=== PATIENT | female | born 1930 | race Caucasian/White ===

== ENCOUNTER → 2016-08-13 16:41 | Outpatient (CLI) | payer MEDICARE, OTHER ==
[2013-03-17 07:27] VITALS: BMI 23.0
[~2016-08-13 16:41] MED LIST: ACIPHEX20 MG PO; ATROVENT 0.03%30 ML; ATROVENT 0.03%30 ML NS; CELEBREX200 MG PO; CELEXA20 MG PO; COUMADIN2 MG PO; DITROPAN X5 MG/BOTTL PO; LISINOPRIL10 MG PO; NEURONTIN 300300 MG PO; NORCO 5/325 TAB1 TA1 PO; TENORMIN50 MG PO; UTA PO; VITAMIN D PO; VOLTAREN100 GM TP; ZANTAC300 MG PO; ZETIA10 MG PO; ZYRTEC PO
== END | disposition home or self-care (01) ==
LOC: D.MAMMO 07-16 09:30
DX: Z12.31 Encounter for screening mammogram for malignant neoplasm of breast (principal)

== ENCOUNTER → 2017-08-24 16:41 | Outpatient (CLI) | payer MEDICARE, OTHER ==
[2013-03-17 07:27] VITALS: BMI 23.0
== END | disposition home or self-care (01) ==
LOC: D.MAMMO 14:45
DX: Z12.31 Encounter for screening mammogram for malignant neoplasm of breast (principal)

== ENCOUNTER → 2017-12-06 12:47 | Outpatient (CLI) | payer MEDICARE, OTHER ==
[2013-03-17 07:27] VITALS: BMI 23.0
== END | disposition home or self-care (01) ==
LOC: D.CT 12:47
DX: I73.9 Peripheral vascular disease, unspecified (principal)

== ENCOUNTER 2018-01-19 05:33 | Outpatient (CLI) | payer MEDICARE, OTHER ==
[~2018-01-19] VITALS: Ht 162.6 cm; Wt 55.9 kg
--- NOTE | ~2018-01-19 | HEMODYNAMI ---
PATIENT:LACEY FREDERICK MEDICAL RECORD: [id number] : 34 LOCATION:[facility] ADMISSION DATE: 01/19/18 Generatedon:01/19/20189:13 Patient name: LACEY FREDERICK Patient #: [id number] SSN: DO B: 1930 Date of study: 01/19/2018 Page: Of Hemodynamic Procedure Report Patient Data Patient Demographics Procedure consent was obtained First Name: LACEY Gender: Female Last Name: YOLY : 1930 Middle Initial: M Age: 87 year(s) Patient #: [id number] Race: Unknown Additional ID: [id number] Contact details Address: [address] [place] [address] State: [place] City: [place] Zip code: [address] Past Medical History Allergies Allergen Reaction Date Comments Reported Erythromycin 01/19/2018 Sulfa drugs 01/19/2018 Admission Admission Data Admission Date: 01/19/2018 Admission Time: 5:33 Height (in.): 64 BSA: 1.59 (m2) Height (cm.): 162.56 BMI: 21.11 (kg/m2) Weight (lbs.): 123 Weight (kg.): 55.79 Procedure Procedure Types Cath Procedure Peripheral Cath 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 Abd/Extremity Extremities Bilat Lower Extremity Procedure Description Procedure Date Procedure Date: 01/19/2018 Procedure Start Time: 8:26 Procedure Staff Name Function Marko Arthur MD Performing Physician Mariajose Zamora RT Environmental Health Technician Isabella Goldstein RN Nurse Nuris Starks RN Nurse Ross Ohara RT Scrub Procedure Data Cath Procedure Fluoroscopy Diagnostic fluoroscopy Total fluoroscopy Time: 6.6 time: 6.6 min min Diagnostic fluoroscopy Total fluoroscopy dose: dose: 1126 mGy 1126 mGy Contrast Material Contrast Material Type Amount (ml) Isovue 300 90 Entry Location Entry Primary Successful Side Size Upsize Upsize Entry Closure Succes sful Closure Location (Fr) 1 (Fr) 2 (Fr) Remarks Device Remarks Femoral Left Exoseal artery Procedure Medications Medication Administration Route Dosage Heparin Flush Bag added to field 3 bags (1000units/500ml NS) Lidocaine 1% added to field 20 Oxygen etCO2 Nasal cannula 3 l/min Versed I.V. 0.5 mg Fentanyl I.V. 25 mcg Fentanyl I.V. 25 mcg Versed I.V. 0.5 mg Fentanyl I.V. 25 mcg Versed I.V. 0.5 mg Versed I.V. 0.5 mg Fentanyl I.V. 25 mcg Hemodynamics Rest BSA: 1.59 (m2) O2 Consumption: Estimated: 140.92 (ml/min) O2 Consumption indexed : Estimated:88.63 (ml/min/m) Heart Rate: 69 (bpm) Snapshots Pre Cath Intra NCS Post Cath Vital Signs Time Heart Resp SPO2 etCO2 NIBP (mmHg) Rhythm Pain Sedation Rate (ipm) (%) (mmHg) Status Level (bpm) 7:52:18 67 12 100 27 190/101(147) NSR 0 (11) 10(A) , No pain 7:57:03 69 20 100 27 206/100(152) NSR 0 (11) 10(A) , No pain 8:01:46 65 13 100 25.5 178/82(131) NSR 0 (11) 10(A) , No pain 8:05:45 66 11 100 24.8 169/85(132) NSR 0 (11) 9(A) , No pain 8:09:47 62 9 100 24.8 174/81(135) NSR 0 (11) 9(A) , No pain 8:14:21 62 9 100 30 184/84(144) NSR 0 (11) 9(A) , No pain 8:18:25 62 14 100 27 186/86(143) NSR 0 (11) 9(A) , No pain 8:22:29 61 21 100 32.3 180/84(116) NSR 0 (11) 9(A) , No pain 8:27:05 64 10 100 32.3 182/86(137) NSR 0 (11) 9(A) , No pain 8:31:07 62 23 100 33.8 179/89(130) NSR 0 (11) 8(A) , No pain 8:35:09 58 12 100 32.3 171/79(135) SB 0 (11) 8(A) , No pain 8:39:45 66 12 100 27 171/86(128) SB 0 (11) 8(A) , No pain 8:44:19 59 11 100 25.5 172/78(132) SB 0 (11) 8(A) , No pain 8:48:56 65 12 100 27.8 117/84(107) SB 0 (11) 8(A) , No pain 8:53:53 67 10 100 34.6 Out of range SB 0 (11) 8(A) , No pain 8:55:01 67 10 100 33.1 185/92(144) SB 0 (11) 8(A) , No pain 8:59:02 69 11 100 33.1 188/96(155) SB 0 (11) 8(A) , No pain 9:03:06 68 12 100 30.1 194/95(149) SB 0 (11) 8(A) , No pain 9:07:16 66 16 100 33.1 191/94(134) SB 0 (11) 8(A) , No pain 9:12:07 57 12 100 33.1 159/76(117) SB 0 (11) 8(A) , No pain Medications Time Medication Route Dose Verified Delivered Reason Notes Effec tiveness by by 8:03:36 Heparin Flush added 3 Marko Zhu used for Bag to bags Jerson Arthur MD procedure (1000units/500ml field GHOTRA NS) 8:03:49 Lidocaine 1% added 20ml Marko Zhu to vial Jerson Arthur MD field MD 8:04:03 Oxygen etCO2 3 Marko Mason Nasal l/min Triston Arthur RN cannula 8:28:54 Versed I.V. 0.5 Marko Lawler for Mostl y mg Raudel Arthur RN sedation sleeping @ 8:34:27 8:29:04 Fentanyl I.V. 25 Marko Lawler for Mostl y mcg Raudel Arthur RN sedation sleeping @ MD 8:34:30 8:45:17 Fentanyl I.V. 25 Marko Lawler for mcg Raudel Arthur RN sedation 8:45:25 Versed I.V. 0.5 Marko Lawler for mg Raudel Arthur RN sedation 9:01:08 Fentanyl I.V. 25 Marko Lawler for mcg Raudel Arthur RN sedation 9:01:16 Versed I.V. 0.5 Marko Lawler for mg Raudel Arthur RN sedation 9:08:07 Versed I.V. 0.5 Marko Lawler for mg Raudel Arthur RN sedation 9:08:15 Fentanyl I.V. 25 Marko Lawler for mcg Raudel Arthur RN sedation Procedure Log Time Note 7:37:16 Patient Height : 64 inches 7:37:20 Patient Weight : 123 lbs 7:39:13 Time tracking: Regular hours (M-F 7:00 - 5:00) 7:47:19 Plan of Care:Hemodynamics will remain stable., Cardiac rhythm will remain stable., Comfort level will be maintained., Respiratory function will remain adequate., Patient/ family verbilizes understanding of procedure., Procedure tolerated without complication., Recovers from procedure without complications.. 7:47:28 Patient received from Outpatients to IR Alert and oriented. Tansferred to table in Supine position. 7:47:35 Correct patient and procedure confirmed by team. 7:47:38 Signed procedure consent form obtained from patient. 7:47:44 H&P Date Dictated: 01/19/2018 Within 30 days and on chart.. 7:47:46 Pre-procedure instructions explained to patient. 7:47:47 Pre-op teaching completed and patient verbalized understanding. 7:47:50 Family in waiting room. 7:47:52 Patient NPO since Midnight. 7:48:01 Patient allergic to Erythromycin 7:48:21 Patient allergic to Sulfa drugs 7:49:56 Is the patient allergic to Iodine/contrast media? No. 7:49:59 Is patient on blood thinner?Yes 7:50:03 ACC The patient was administered the following blood thiners within the last 24 hours: ACCAspirin 7:50:11 Patient diabetic? No. 7:50:15 7:50:17 ----Pre-sedation anethsthesia assessment.---- 7:50:19 Previous problem with sedation/anesthesia? No ? 7:50:22 Snore? Yes 7:50:25 Sleep apnea? Yes 7:50:27 Deviated septum? No 7:50:30 Opens mouth fully? Yes 7:50:33 Sticks out tongue? Yes 7:50:37 Airway obstruction? No ? 7:50:41 Dentures? No ? 7:50:45 7:50:49 ECG and BP/O2 sat monitors applied to patient. 7:50:54 Vital chart was started 7:51:31 Baseline sample Acquired. 7:51:57 Pre procedure: right dorsailis pedis pulse Doppler 7:52:03 Pre procedure: left dorsailis pedis pulse Doppler 7:52:09 Pre procedure: right posterior tibial pulse Doppler 7:52:13 Pre procedure: left posterior tibial pulse Doppler 7:52:24 IV patent on arrival in right hand with D5/.45%NaCl at O. 7:52:35 Right groin area was prepped with chlora-prep and draped in sterile fashion 7:52:41 Left groin area was prepped with chlora-prep and draped in sterile fashion 7:52:45 7:53:08 Use device set IR Diagnostic 7:53:11 Tegaderm 4 x 4 (1626W) opened to sterile field. 7:53:12 Sterile Angiographic Pack opened to sterile field. 7:53:12 Bag Decanter () opened to sterile field. 7:53:13 ACIST Manifold (90090) opened to sterile field. 7:53:14 ACIST Hand Control (87667) opened to sterile field. 7:53:15 ACIST Syringe (09059) opened to sterile field. 7:53:16 TUBING Contrast Injection High Pressure (ZLQ458E) opened to sterile field. 7:53:17 DOC .035 wire (V58553) opened to sterile field. 7:53:18 SHEATH 5FR Elton (BQK489) opened to sterile field. 7:53:29 Angiodynamics Omniflush 5Fr 65cm (41015325) opened to sterile field. 8:03:36 Heparin Flush Bag (1000units/500ml NS) 3 bags added to field was administered by Marko Arthur MD; used for procedure; 8:03:49 Lidocaine 1% 20ml vial added to field was administered by Marko Arthur MD; ; 8:04:03 Oxygen 3 l/min etCO2 Nasal cannula was administered by Isabella Goldstein RN; ; 8:07:06 STOPCOCK 3-Way Large Bore (V21615) opened to sterile field. 8:07:07 TUBING Contrast Injection High Pressure (OBD004I) opened to sterile field. 8:25:31 Physician arrived 8:25:41 --------ALL STOP TIME OUT------ 8:25:42 Final Timeout: patient, procedure, and site verified with staff and physician. All members of the team are in agreement. 8:26:02 Procedure started. 8:26:03 Full Disclosure recording started 8:26:10 Local anesthetic to left femerol artery with Lidocaine 1% by Marko Arthur MD.INITIAL ACCESS ONLY 8:26:22 Arterial access obtained using ultrasound guidance. 8:28:54 Versed 0.5 mg I.V. was administered by Nuris Starks RN; for sedation; 8:29:04 Fentanyl 25 mcg I.V. was administered by Nuris Starks RN; for sedation; 8:34:27 Effectiveness of Versed delivered @ 8:28:54 is: Mostly sleeping 8:34:30 Effectiveness of Fentanyl delivered @ 8:29:04 is: Mostly sleeping 8:36:47 GLIDE CATHETER 5FR ANGLED 65cm (CG507) opened to sterile field. 8:36:59 TORQUE DEVICE PLASTIC .038 ( TD01) opened to sterile field. 8:37:15 GLIDE WIRE ANGLE 180cm (SQ4380) opened to sterile field. 8:45:17 Fentanyl 25 mcg I.V. was administered by Nuris Starks RN; for sedation; 8:45:25 Versed 0.5 mg I.V. was administered by Nuris Starks RN; for sedation; 9:01:08 Fentanyl 25 mcg I.V. was administered by Nuris Starks RN; for sedation; 9:01:16 Versed 0.5 mg I.V. was administered by Nuris Starks RN; for sedation; 9:06:32 EXOSEAL 5Fr (EX500) opened to sterile field. 9:07:01 A sheath was inserted into the Left Femoral artery 9:07:01 Sheath removed intact; hemostasis achieved with Exoseal to the Left Femoral artery. 9:08:07 Versed 0.5 mg I.V. was administered by Nuris Starks RN; for sedation; 9:08:15 Fentanyl 25 mcg I.V. was administered by Nuris Starks RN; for sedation; 9::42 BED CARRILLO UNDER PT 9:08:42 Procedure ended.(Physican Out) 9:08:57 Fluoroscopy time 06.60 minutes. 9:09:02 Flurop Dose total: 1126 9:09:02 Fluoroscopy dose: 1126 mGy 9:09:08 Contrast amount:Isovue 300 90ml. 9:09:11 Procedure and supply charges have been captured, reviewed, submitted and are correct. 9:13:44 Vital chart was stopped Device Usage Item Name Manufacture Quantity Catalog Hospital Part Current Minim al Lot# / Number Charge Number Stock Stock Serial# Code Tegaderm 4 x 3M 1 1626W 515004 [id number] [id number] 5 4 (1626W) Sterile Cardinal 1 [id number] 071556 735414 5 Angiographic Health Pack Bag Decanter Microtek 1 243568 23546 198984 5 () Medical Inc. ACIST Acist Medical 1 28564 954716 966413 285295 5 Manifold Systems Inc (96340) ACIST Hand [employer] 1 46770 918210 589300 374664 5 Control Systems Inc (81650) ACIST Syringe [employer] 1 78780 246974 337488 475958 20 (82152) Systems Inc TUBING [facility] 2 [id number] 147652 067248 801615 5 Contrast Injection High Pressure (CUW258Y) DOC .035 wire [employer] 1 E84146 829369 847790 5 (H23951) SHEATH 5FR Terumo 1 DPE660 805380 536292 128820 40 Elton (JVW159) Angiodynamics Angiodynamics 1 [id number] 990591 254254 575438 5 Omniflush 5Fr 65cm (85897191) STOPCOCK [employer] 1 H14134 046270 4001 905535 5 3-Way Large Bore (L30482) GLIDE Terumo 1 CG507 585873 060307 5 CATHETER 5FR ANGLED 65cm (CG507) TORQUE DEVICE [employer] 1 TD01 487425 626215 879457 5 PLASTIC .038 Scientific ( TD01) GLIDE WIRE Terumo 1 HZ8179 617786 601121 500963 5 ANGLE 180cm (PP5298) EXOSEAL 5Fr Cardinal 1 EX500 682666 213479 837499 10 [id number] (EX500) Health Signature Audit [place] Stage Time Signature Unsigned Intra-Procedure 01/19/2018 Mariajose Zamora 9:13:40 AM RT(R) [facility] [address] [place] [address]
[2018-01-19 05:58] LABS: BASOPHILS 0.3 % (0-2); EOSINOPHILS 5.5 % (0-7); HEMATOCRIT 38.8 % (36.0-48.0); HEMOGLOBIN 12.4 g/dL (12-16); IMMATURE GRANULOCYTES 0.6 % (0-5); LYMPHOCYTES 19.7 % (15-50); MCH 29.1 pg (26.0-34.0); MCV 91.1 fL (80.0-100.0); MEAN PLATELET VOLUME 10.8 fL (7.4-10.4); MONOCYTES 10.9 % (2-11); PLATELET COUNT 224 10x3/uL (130-400); RBC 4.26 10x6/uL (4.00-5.40); WBC 11.1 10x3/uL (4.8-10.8)
[2018-01-19 06:07] LABS: ANION GAP 12.6 mmol/L (8-16); CALCIUM 8.6 mg/dL (8.5-10.1); CARBON DIOXIDE 25.9 mmol/L (21.0-32.0); CREATININE - SERUM 1.8 mg/dL (0.6-1.3); POTASSIUM - SERUM 4.5 mmol/L (3.5-5.1)
[2018-01-19 06:15] LABS: APTT 31.6 SECONDS (22.8-39.4); INR 0.95 (0.85-1.17); PROTIME 12.3 SECONDS (11.6-15.0)
[2018-01-19] MEDS ORDERED: PRINIVIL20 MG PO (06:27)
[2018-01-19] MEDS ORDERED: ALENDRONATE SOD70 MG PO (06:30)
[2018-01-19] MEDS ORDERED: OXYBUTYNIN CHLOR5 MG (06:30)
[2018-01-19] MEDS ORDERED: MOBIC7.5 MG PO (06:31)
[2018-01-19] MEDS ORDERED: LIPITOR20 MG PO (06:32)
[2018-01-19] MEDS ORDERED: NORVASC2.5 MG PO (06:34)
[2018-01-19 06:41] VITALS: Ht 162.6 cm; Wt 55.9 kg
== END 2018-01-19 13:35 | disposition home or self-care (01) ==
LOC: D.SP 05:33 → D.RAD 08:00 → D.SP 13:35
PROVIDERS: General Practice
DX: I70.293 Other atherosclerosis of native arteries of extremities, bilateral legs (principal); I70.92 Chronic total occlusion of artery of the extremities; Z01.812 Encounter for preprocedural laboratory examination

== ENCOUNTER 2018-01-25 07:07 | Outpatient (CLI) | payer MEDICARE, OTHER ==
[~2018-01-25] VITALS: Ht 162.6 cm; Wt 55.9 kg
--- NOTE | ~2018-01-25 | HEMODYNAMI ---
PATIENT:LACEY FREDERICK MEDICAL RECORD: [id number] : 34 LOCATION:[facility] ADMISSION DATE: 01/25/18 Generatedon:01/25/201810:56 Patient name: LACEY FREDERICK Patient #: [id number] SSN: DO B: 1930 Date of study: 01/25/2018 Page: Of Hemodynamic Procedure Report Patient Data Patient Demographics Procedure consent was obtained First Name: LACEY Gender: Female Last Name: YOLY : 1930 Middle Initial: M Age: 87 year(s) Patient #: [id number] Race: Unknown Additional ID: [id number] Contact details Address: [address] [place] [address] State: [place] City: [place] Zip code: [address] Past Medical History Allergies Allergen Reaction Date Comments Reported Erythromycin 01/19/2018 Sulfa drugs 01/19/2018 Other allergy 01/25/2018 cipro and ees Admission Admission Data Admission Date: 01/25/2018 Admission Time: 7:07 Procedure Procedure Types Cath Procedure Peripheral Cath Diagnostic Procedure Abd/Extremity Extremities Procedure Description Procedure Date Procedure Date: 01/25/2018 Procedure Start Time: 9:31 Procedure Staff Name Function Marko Arthur MD Performing Physician Ross Ohara RT Monitor Miroslava Carr Scrub Isabella Goldstein RN Nurse Nuris Starks RN Nurse Procedure Data Cath Procedure Fluoroscopy Diagnostic fluoroscopy Total fluoroscopy Time: 3.3 time: 3.3 min min Diagnostic fluoroscopy Total fluoroscopy dose: 97 dose: 97 mGy mGy Contrast Material Contrast Material Type Amount (ml) Isovue 300 70 Entry Location Entry Primary Successful Side Size Upsize Upsize Entry Closure Succes sful Closure Location (Fr) 1 (Fr) 2 (Fr) Remarks Device Remarks Femoral Right 5 Fr 6 Fr Exoseal artery Short Procedure Medications Medication Administration Route Dosage Heparin Flush Bag added to field 3 bags (1000units/500ml NS) Lidocaine 1% added to field 20 Oxygen etCO2 Nasal cannula 3 l/min Versed I.V. 1 mg Fentanyl I.V. 50 mcg Versed I.V. 1 mg Fentanyl I.V. 50 mcg Versed I.V. 1 mg Fentanyl I.V. 50 mcg Heparin Bolus I.V. 4000 units Nitroglycerin IC/IA I.A. 200 mcg Hemodynamics Rest Heart Rate: 65 (bpm) Snapshots Pre Cath Intra NCS Post Cath Vital Signs Time Heart Resp SPO2 etCO2 NIBP (mmHg) Rhythm Pain Sedation Rate (ipm) (%) (mmHg) Status Level (bpm) 9:26:39 59 15 100 35.1 155/75(123) NSR 0 (11) 10(A) , No pain 9:30:59 62 16 98 30.6 149/73(117) NSR 0 (11) 10(A) , No pain 9:35:13 67 17 99 34.3 167/82(139) NSR 0 (11) 10(A) , No pain 9:40:12 71 15 99 22.4 Measuring NSR 0 (11) 10(A) , No pain 9:40:31 72 14 99 15.6 168/86(137) NSR 0 (11) 10(A) , No pain 9:44:51 58 11 99 28.4 175/85(144) NSR 0 (11) 10(A) , No pain 9:49:17 60 6 98 29.9 160/73(138) NSR 0 (11) 10(A) , No pain 9:53:39 59 3 95 32.1 139/69(111) NSR 0 (11) 10(A) , No pain 9:57:53 58 11 99 0 139/69(111) NSR 0 (11) 10(A) , No pain 10:02:05 64 13 91 21.6 112/65(87) NSR 0 (11) 10(A) , No pain 10:06:13 59 12 99 0 127/64(100) NSR 0 (11) 10(A) , No pain 10:10:22 57 10 98 0 129/67(104) NSR 0 (11) 10(A) , No pain 10:14:34 63 19 99 20.9 136/66(106) NSR 0 (11) 10(A) , No pain 10:18:50 64 12 99 0 125/66(99) NSR 0 (11) 10(A) , No pain 10:23:49 56 21 100 21.6 Measuring NSR 0 (11) 10(A) , No pain 10:23:56 57 17 100 21.6 143/75(118) NSR 0 (11) 10(A) , No pain 10:28:14 55 8 100 0 120/65(93) NSR 0 (11) 10(A) , No pain 10:32:24 56 21 99 29.8 116/64(94) NSR 0 (11) 10(A) , No pain 10:36:32 61 14 100 0 111/64(93) NSR 0 (11) 10(A) , No pain 10:40:39 54 17 100 16.4 119/58(83) NSR 0 (11) 10(A) , No pain 10:45:38 54 23 100 26.1 Measuring NSR 0 (11) 10(A) , No pain 10:46:11 54 10 100 29.8 70/46(65) NSR 0 (11) 10(A) , No pain 10:48:28 55 10 100 32.8 126/64(93) NSR 0 (11) 10(A) , No pain 10:52:40 60 11 100 36.6 122/64(102) NSR 0 (11) 10(A) , No pain Medications Time Medication Route Dose Verified Delivered Reason Notes Effe ctiveness by by 9:13:14 Heparin Flush added 3 Marko Zhu used for Bag to bags Jerson Arthur MD procedure (1000units/500ml field GHOTRA NS) 9:13:27 Lidocaine 1% added 20ml Marko Zhu used for to vial Jerson Arthur MD procedure field GHOTRA 9:13:42 Oxygen etCO2 3 Marko Lawler Nasal l/min Raudel Arthur RN cannula 9:33:43 Versed I.V. 1 mg Marko Lawler for Raudel Arthur RN sedation 9:33:53 Fentanyl I.V. 50 Marko Lawler for mcg Raudel Arthur RN sedation 9:40:46 Versed I.V. 1 mg Marko Lawler for Raudel Arthur RN sedation 9:40:54 Fentanyl I.V. 50 Marko Lawler for mcg Raudel Arthur RN sedation 9:52:25 Versed I.V. 1 mg Marko Lawler for Raudel Arthur RN sedation 9:52:32 Fentanyl I.V. 50 Marko Lawler for mcg Raudel Arthur RN sedation 9:58:50 Heparin Bolus I.V. 4000 Marko Lawler units Raudel Arthur RN, MD 10:00:39 Nitroglycerin I.A. 200 Marko Zhu IC/IA mcg Jerson Arthur MD MD Procedure Log Time Note 8:57:40 Ross Ohara RT (R) (CV) sent for patient. Start room use. 8:57:50 Time tracking: Regular hours (M-F 7:00 - 5:00) 8:57:57 Plan of Care:Hemodynamics will remain stable., Cardiac rhythm will remain stable., Comfort level will be maintained., Respiratory function will remain adequate., Patient/ family verbilizes understanding of procedure., Procedure tolerated without complication., Recovers from procedure without complications.. 8:58:03 Patient received from Outpatients to IR Alert and oriented. Tansferred to table in Supine position. 8:58:04 Correct patient and procedure confirmed by team. 8:58:05 Correct patient and procedure confirmed by team. 8:58:07 Signed procedure consent form obtained from patient. 8:58:08 ECG and BP/O2 sat monitors applied to patient. 8:58:09 Full Disclosure recording started 8:58:10 - 8:58:13 H&P Date Dictated: 01/25/2018 H&P Addendum completed by physician on day of procedure. (MUST COMPLETE FOR ALL OUTPATIENTS). 8:58:14 Pre-procedure instructions explained to patient. 8:58:15 Pre-op teaching completed and patient verbalized understanding. 8:58:16 Family in waiting room. 8:58:18 Patient NPO since Midnight. 8:58:53 Patient allergic to Other allergycipro and ees 9:00:26 ----Pre-sedation anethsthesia assessment.---- 9:00:29 Previous problem with sedation/anesthesia? No ? 9:04:35 Snore? Yes 9:04:37 Sleep apnea? Yes 9:04:39 Deviated septum? No 9:05:10 Opens mouth fully? Yes 9:05:12 Sticks out tongue? Yes 9:05:34 Airway obstruction? No ? 9:05:38 Dentures? No ? 9:05:52 Use device set IR Diagnostic 9:05:55 ACIST Syringe (18931) opened to sterile field. 9:05:55 ACIST Hand Control (21351) opened to sterile field. 9:05:55 ACIST Manifold (30374) opened to sterile field. 9:05:56 Bag Decanter (2001S) opened to sterile field. 9:05:56 Sterile Angiographic Pack opened to sterile field. 9:05:57 Tegaderm 4 x 4 (1626W) opened to sterile field. 9:11:22 Pre procedure: right dorsailis pedis pulse Doppler 9:11:26 Pre procedure: left dorsailis pedis pulse Doppler 9:11:29 Pre procedure: right posterior tibial pulse Doppler 9:11:32 Pre procedure: left posterior tibial pulse Doppler 9:11:34 Sharps counted by scrub and verified by R.N. 9:11:34 Alarms reviewed by R. N. 9:11:41 Right groin area was prepped with chlora-prep and draped in sterile fashion 9:13:14 Heparin Flush Bag (1000units/500ml NS) 3 bags added to field was administered by Marko Arthur MD; used for procedure; ::27 Lidocaine 1% 20ml vial added to field was administered by Marko Arthur MD; used for procedure; 9:13:42 Oxygen 3 l/min etCO2 Nasal cannula was administered by Nuris Starks RN ; ; 9:21:29 IV patent on arrival in left forearm with 0.9% NaCl at [facility]. 9:25: Vital chart was started 9::27 Baseline sample Acquired. 9:30:40 Physician arrived 9::40 --------ALL STOP TIME OUT------ 9::41 Final Timeout: patient, procedure, and site verified with staff and physician. All members of the team are in agreement. 9:30:43 Right groin site verified by team. 9:30:48 Sedation plan: IV Moderate Sedation Medication:Versed, Fentanyl 9:30:59 Procedure started. 9:31:03 Local anesthetic to right femoral artery with Lidocaine 1% by Marko Arthur MD.INITIAL ACCESS ONLY 9:31:16 INFLATOR BasixTOUCH (HD4567) opened to sterile field. 9:31:16 CHAN 260 wire (J97953) opened to sterile field. 9:31:17 TUBING Contrast Injection High Pressure (VTI780L) opened to sterile field. 9:31:18 DOC .035 wire (C04769) opened to sterile field. 9:31:19 Cordis 5Fr BRITE TIP 11cm sheath opened to sterile field. 9:31:19 Micropuncture VSI 4FR kit opened to sterile field. 9:31:24 Access obtained with 4Fr micropunture. 9:31:35 A 5 Fr sheath was inserted into the Right Femoral artery 9:33:43 Versed 1 mg I.V. was administered by Nuris Starks RN; for sedation; 9:33:53 Fentanyl 50 mcg I.V. was administered by Nuris Starks RN; for sedation ; 9:40:46 Versed 1 mg I.V. was administered by Nuris Starks RN; for sedation; 9:40:48 AMPLATZ Super stiff 3mm J 260cm wire ([id number]) opened to sterile field. 9:40:54 Fentanyl 50 mcg I.V. was administered by Nuris Starks RN; for sedation ; 9:42:43 GLIDE CATHETER 5FR ANGLED 65cm (CG507) opened to sterile field. 9:46:42 iv infiltrate- meds not effective 9:49:16 GLIDE WIRE .038 180cm ANGLED (TJ0479) opened to sterile field. 9:52:14 restart iv 22g left arm 9:52:25 Versed 1 mg I.V. was administered by Nuris Starks RN; for sedation; 9:52:32 Fentanyl 50 mcg I.V. was administered by Nuris Starks RN; for sedation ; 9:53:28 TORQUE DEVICE PLASTIC .038 ( TD01) opened to sterile field. 9:54:31 SHEATH 6FR [place] (EIW106) opened to sterile field. 9:54:43 Sheath upsized to a 6 Fr Short. 9:58:50 Heparin Bolus 4000 units I.V. was administered by Nuris Starks RN; ; 10:00:39 Nitroglycerin IC/IA 200 mcg I.A. was administered by Marko Arthur MD; ; 10:01:10 Inflate balloon Inflation number: 1 A [place] 4 x 4 x 135 Balloon ([id number]) was prepped and advanced across the Distal Superficial Femoral, Right, then inflated to 14 DEANGELO for 0:15 (min:sec). 10:01:45 Inflation number: 2 The Evercross 4 x 4 x 135 Balloon ([id number]) was reinflated across the Distal Superficial Femoral, Right, to 10 DEANGELO for 0:13 (min:sec). 10:08:07 Inflate balloon Inflation number: 3 A IN.PACT Admiral 5 x 40 x 130 DCB Balloon ([id number]) was prepped and advanced across the Distal Superficial Femoral, Right, then inflated to 0 DEANGELO for 2:58 (min:sec). 10:13:29 Inflate balloon Inflation number: 4 A IN.PACT Admiral 4 x 40 x 130 DCB Balloon ([id number]) was prepped and advanced across the Distal Superficial Femoral, Right, then inflated to 8 DEANGELO for 2:55 (min:sec). 10:19:29 EXOSEAL 6Fr (EX600) opened to sterile field. 10:22:58 Sheath removed intact; hemostasis achieved with Exoseal to the Right Femoral artery. 10:23:01 Procedure ended.(Physican Out) 10:23:37 Fluoroscopy time 03.30 minutes. 10:23:42 Fluoroscopy dose: 97 mGy 10:23:42 Flurop Dose total: 97 10:23:44 Sharps counted by scrub and verified by R.N. 10:23:48 Insertion/operative site no bleeding no hematoma. 10:24:00 Post-op/insertion site Right Femoral artery dressed using a 4 x 4 and Tegaderm. 10:24:04 Post right femoral artery:stable 10:24:07 Post Procedure Pulses reassessed and unchanged 10:25:57 Post procedure instruction explained to patient.Patient verbalizes understanding. 10:25:58 Procedure and supply charges have been captured, reviewed, submitted an d are correct. 10:29:09 Contrast amount:Isovue 300 70ml. 10:55:37 Report given to Outpatients. 10:55:40 Patient transfered to Outpatients with Stretcher. 10:56:22 Vital chart was stopped Intervention Summary Intervention Notes Time ActionType Lesion and Equipment Used Action# Pressure Duration Attributes 10:01:10 Inflate Distal Evercross 4 x 4 1 14 00:15 balloon Superficial x 135 Balloon Femoral, ([id number]) Right 10:01:45 Reinflate Distal [place] 4 x 4 2 10 00:13 balloon Superficial x 135 Balloon Femoral, ([id number]) Right 10:08:07 Inflate Distal IN.PACT Admiral 3 0 02:58 balloon Superficial 5 x 40 x 130 Femoral, DCB Balloon Right ([id number]) 10:13:29 Inflate Distal IN.PACT Admiral 4 8 02:55 balloon Superficial 4 x 40 x 130 Femoral, DCB Balloon Right ([id number]) Device Usage Item Name Manufacture Quantity Catalog Number Hospital Part Current M inimal Lot# / Charge Number Stock Stock Serial# Code ACIST Syringe Acist 1 18990 810984 408167 398731 2 0 (82300) Medical Systems Inc ACIST Hand Acist 1 90703 989942 490201 908017 5 Control (60479) Medical Systems Inc ACIST Manifold Acist 1 06930 292101 368587 847456 5 (96304) Medical Systems Inc Bag Decanter Microtek 1 2001S 600898 54454 746932 5 (2001S) Medical Inc. Sterile Cardinal 1 [id number] 270225 165684 5 Angiographic Health Pack Tegaderm 4 x 4 3M 1 1626W 325088 354950 465919 5 (1626W) INFLATOR Merit 1 IW5608 520534 109644 814751 5 BasixTOOricula Therapeutics Medical (RP4518) CHAN 260 wire Cook Medical 1 R67527 840256 39708 898435 5 (X98768) TUBING Contrast Merit 1 [id number] 087090 227213 210197 5 Injection High Medical Pressure ([id number]) DOC .035 wire Cook Medical 1 N76705 304110 687052 5 (D06359) Cordis 5Fr Cardinal 1 [id number] 803233 055673 5 BRITE TIP 11cm Health sheath Micropuncture VSI VASCULAR 1 7266V 677292 792649 5 VSI 4FR kit SOLUTIONS AMPLATZ Super [place] 1 [id number] 932643 466406 5 stiff 3mm J Scientific 260cm wire ([id number]) GLIDE CATHETER Terumo 1 CG507 373609 563226 5 5FR ANGLED 65cm (CG507) GLIDE WIRE .038 Terumo 1 BH0696 666987 465277 5 180cm ANGLED (TR0272) TORQUE DEVICE [place] 1 TD01 750777 129785 287573 5 PLASTIC .038 ( Scientific TD01) SHEATH 6FR Terumo 1 RRM426 599063 009757 850901 4 0 [place] (BQI065) Evercross 4 x 4 Medtronic 1 [id number] 634587 518267 782001 5 x 135 Balloon ([id number]) IN.PACT Admiral Medtronic 1 [id number] 977626 278110 514234 5 [id number] 5 x 40 x 130 DCB Balloon ([id number]) IN.PACT Admiral Medtronic 1 [id number] 657480 778807 289484 5 [id number] 4 x 40 x 130 DCB Balloon ([id number]) EXOSEAL 6Fr Cardinal 1 EX600 297543 213643 881221 1 0 [id number] (EX600) Health Signature Audit [place] Stage Time Signature Unsigned Intra-Procedure 01/25/2018 Ross 10:56:17 AM Mayda RT (R) (CV) Signatures Monitor : Ross Signature : Mayda RT Date : Time : [place] [id number] [facility] [place] [address]
[~2018-01-25 07:07] MED LIST changes: +ALENDRONATE SOD70 MG PO; +LIPITOR20 MG PO; +MOBIC7.5 MG PO; +NORVASC2.5 MG PO; +OXYBUTYNIN CHLOR5 MG; +PRINIVIL20 MG PO
[2018-01-25 07:46] LABS: BASOPHILS 0.4 % (0-2); EOSINOPHILS 6.1 % (0-7); HEMATOCRIT 36.5 % (36.0-48.0); HEMOGLOBIN 11.9 g/dL (12-16); IMMATURE GRANULOCYTES 0.3 % (0-5); LYMPHOCYTES 14.5 % (15-50); MCH 29.5 pg (26.0-34.0); MCHC 32.6 g/dL (31.0-37.0); MCV 90.6 fL (80.0-100.0); MEAN PLATELET VOLUME 10.6 fL (7.4-10.4); MONOCYTES 11.1 % (2-11); NEUTROPHILS 67.6 % (40-80); PLATELET COUNT 237 10x3/uL (130-400); RBC 4.03 10x6/uL (4.00-5.40); RDW 12.9 % (11.5-14.5); WBC 9.4 10x3/uL (4.8-10.8)
[2018-01-25 07:59] LABS: ANION GAP 11.6 mmol/L (8-16); CALCIUM 8.5 mg/dL (8.5-10.1); CARBON DIOXIDE 25.8 mmol/L (21.0-32.0); CREATININE - SERUM 1.5 mg/dL (0.6-1.3); POTASSIUM - SERUM 4.4 mmol/L (3.5-5.1)
[2018-01-25 08:00] LABS: APTT 30.4 SECONDS (22.8-39.4); INR 0.94 (0.85-1.17); PROTIME 12.2 SECONDS (11.6-15.0)
[2018-01-25 08:23] VITALS: Ht 162.6 cm; Wt 55.9 kg
[2018-01-25] MEDS ORDERED: PLAVIX75 MG PO ×2 (15:01→15:02)
[2018-01-25] MEDS ORDERED: BAYER CHEWABLE81 MG PO (15:01)
[2018-01-25] MEDS ORDERED: ASPIRIN325 MG PO (15:01)
== END 2018-01-25 15:15 | disposition home or self-care (01) ==
LOC: D.SP 07:07 → D.RAD 09:00 → D.SP 09:00
PROVIDERS: General Practice
DX: I70.221 Atherosclerosis of native arteries of extremities with rest pain, right leg (principal); Z01.812 Encounter for preprocedural laboratory examination

== ENCOUNTER 2018-11-21 08:00 | Outpatient (CLI) | payer MEDICARE, OTHER ==
[2018-01-25 08:23] VITALS: BMI 21.1
[~2018-11-21 08:00] MED LIST changes: +ASPIRIN325 MG PO; +BAYER CHEWABLE81 MG PO; +PLAVIX75 MG PO
== END 2018-11-21 23:59 | disposition home or self-care (01) ==
LOC: D.MAMMO 08:00
PROVIDERS: ATTEND Family Medicine
DX: Z12.31 Encounter for screening mammogram for malignant neoplasm of breast (principal)

== ENCOUNTER → 2019-01-02 08:00 | Outpatient (CLI) | payer MEDICARE, OTHER ==
[2018-01-25 08:23] VITALS: BMI 21.1
== END ==
LOC: D.MAMMO 08:00
PROVIDERS: ATTEND Family Medicine
DX: R92.2 Inconclusive mammogram (principal)

== ENCOUNTER 2019-08-04 08:00 | Outpatient (CLI) | payer MEDICARE, OTHER ==
[2018-01-25 08:23] VITALS: BMI 21.1
== END 2019-08-04 08:01 | disposition home or self-care (01) ==
LOC: D.MAMMO 08:00
PROVIDERS: ATTEND Family Medicine
DX: R92.8 Other abnormal and inconclusive findings on diagnostic imaging of breast (principal)

== ENCOUNTER 2019-10-19 08:00 | Outpatient (CLI) | payer MEDICARE, OTHER ==
[2018-01-25 08:23] VITALS: BMI 21.1
== END 2019-10-19 10:00 | disposition home or self-care (01) ==
LOC: D.MAMMO 08:00
PROVIDERS: ATTEND Family Medicine
DX: R92.8 Other abnormal and inconclusive findings on diagnostic imaging of breast (principal)

== ENCOUNTER → 2019-11-16 05:53 | Day surgery (SDC) | payer MEDICARE, OTHER ==
[~2019-11-16] VITALS: Ht 160 cm; Wt 57.6 kg
--- NOTE | ~2019-11-16 | OP ---
PATIENT NAME: LACEY FREDERICK MEDICAL RECORD: [id number] :34 LOCATION:D.OPS ADMISSION DATE: SURGEON: EDWARD GUERRERO MD DATE OF OPERATION: 11/16/2019 PREOPERATIVE DIAGNOSES: 1. Ductal carcinoma in situ of the right breast. 2. Chronic kidney disease. 3. Hypertension. 4. Hyperlipidemia. 5. Rheumatoid arthritis. POSTOPERATIVE DIAGNOSES: 1. Ductal carcinoma in situ of the right breast. 2. Chronic kidney disease. 3. Hypertension. 4. Hyperlipidemia. 5. Rheumatoid arthritis. PROCEDURE: Right needle local lumpectomy with sentinel lymph node biopsy. SURGEON: Edward Guerrero MD REPORT OF PROCEDURE: Preoperatively, the patient underwent lymphoscintigraphy and needle localization for calcifications in the right breast. The patient was taken to the operating room where her right breast and axilla were prepped and draped in sterile fashion. A transverse incision was made on the right lateral aspect of the breast just above the nipple areolar complex. Electrocautery was used to dissect through the subcutaneous tissues. We then eviscerated the wire through the wound. A large core of breast tissue was taken around this wire and this specimen was excised and marked appropriately. Once the specimen was out, it was sent to radiology where there was noted to be good positioning of the wire and the clip and calcifications were noted. We then packed this wound with a lap sponge. We approached the patient's right axilla. A skin incision was made over an area of increased radiotracer uptake. As we pulled up the fatty tissue, there was some arterial bleeding, which was treated with electrocautery and discontinued. We were able to find a single lymph node that had a reading of 200. This lymph node was excised and the surrounding lymphatics were clipped. After we had this out, we inspected the remainder of the axilla and did not find any evidence of any further lymph nodes that needed to be removed. We then irrigated out both wounds with sterile water. The subcutaneous tissues were reapproximated with interrupted 3-0 Vicryl and the skin incisions were closed with running subcutaneous 5-0 Monocryl. A 10 mL of 0.25% Marcaine with epinephrine was infused into the surrounding tissues. The wounds were dressed appropriately. COMPLICATIONS: None. CONDITION: Stable. ANESTHESIA: General endotracheal and local. BLOOD LOSS: 30 mL. TRANSINT:[id number] Voice Confirmation ID: [id number] DOCUMENT ID: [id number] OPERATIVE REPORT [id number] LACEY FREDERICK CHRISTIAN MD CC: GETACHEW KING [id number] DICTATION DATE: 11/16/19 1143 SENIOR DATA DEVELOPER: 11/16/19 1258 REG [facility] [address] [id number]
[~2019-11-16 05:53] MED LIST changes: +CALCIUM PO; +CRANBERRY PO; +FUROSEMIDE20 MG PO; +HYDROCODON-ACE1 EA10 PO; +K-TAB10 MEQ PO; +PRESERVISION PO; +PROBIOTIC1 EAC1 PO
[2019-11-16 06:30] LABS: BASOPHILS 0.2 % (0-2); EOSINOPHILS 2.8 % (0-7); HEMATOCRIT 40.9 % (36.0-48.0); HEMOGLOBIN 12.8 g/dL (12-16); IMMATURE GRANULOCYTES 0.7 % (0-5); LYMPHOCYTES 19.5 % (15-50); MCH 29.5 pg (26.0-34.0); MCHC 31.3 g/dL (31.0-37.0); MCV 94.2 fL (80.0-100.0); MEAN PLATELET VOLUME 10.1 fL (7.4-10.4); MONOCYTES 11.1 % (2-11); NEUTROPHILS 65.7 % (40-80); PLATELET COUNT 233 10x3/uL (130-400); RBC 4.34 10x6/uL (4.00-5.40); RDW 13.5 % (11.5-14.5); WBC 8.1 10x3/uL (4.8-10.8)
[2019-11-16 06:49] LABS: ANION GAP 12.3 mmol/L (8-16); CARBON DIOXIDE 27.1 mmol/L (21.0-32.0); CREATININE - SERUM 1.5 mg/dL (0.6-1.3); POTASSIUM - SERUM 4.4 mmol/L (3.5-5.1)
[2019-11-16 07:13] LABS: APTT 30.6 SECONDS (22.8-39.4); INR 0.89 (0.85-1.17)
[2019-11-16 07:30] VITALS: BP 166/80; Ht 160 cm; Wt 57.6 kg
--- NOTE | 2019-11-16 08:31 | NUR ---
Patient was scheduled for a right breast Lymphoscintigraphy. Consent was obtained and the patient was brought to the nuclear medicine department. Physician, Dr. Arthur, entered the room and a time out was called at 0800. Site was prepped and 524uCi Tc-99m Tilmanocept (Lymphoseek) was injected. Imaging followed.
--- NOTE | 2019-11-16 09:46 | NUR ---
0946 PT BACK FROM RADIOLOGY VIA .
--- NOTE | 2019-11-16 11:38 | NUR ---
1040 PATIENT NOTED TO HAVING LARGE BRUISE ON RIGHT KNEE, PATIENT STATED SHE FELL, MAXIMILIANRLINDSEY.
--- NOTE | 2019-11-16 12:26 | NUR ---
PT IS RESTING QUIETLY IN BED. 2 SIDE RAILS UP. DENIES PAIN/NEEDS AT THIS TIME. IS TOLERATING ORANGE JUICE AT THIS TIME. WILL CONTINUE TO MONITOR.
--- NOTE | 2019-11-16 13:42 | NUR ---
1322 IV DC'D. CATHETER TIP INTACT. NO BLEEDING AT SITE. BANDAID APPLIED. REVIEWED POST OP DISCHARGE INSTRUCTIONS WITH PT WHO VOICES UNDERSTANDING OF THESE INSTRUCTIONS. 1340 PT IS DRESSED AND HAS MET DISCHARGE CRITERIA. WAITING FOR HER CAREGIVER TO ARRIVE TO HOSPITAL TO TAKE HER HOME. PT SITTING ON SOB EATING PB AND CRACKERS. DRINKING WATER. STATES SHE DOES NOT HAVE ANY PAIN.
== END | disposition home or self-care (01) ==
LOC: D.OPS 05:53 → D.PAN 07:30 → D.NM 07:30 → D.OPS 07:30 → D.MAMMO 08:00
PROVIDERS: Anesthesiology; ATTEND Surgery
DX: D05.91 Unspecified type of carcinoma in situ of right breast (principal); E11.22 Type 2 diabetes mellitus with diabetic chronic kidney disease; I12.9 Hypertensive chronic kidney disease with stage 1 through stage 4 chronic kidney disease, or unspecified chronic kidney disease; N18.9 Chronic kidney disease, unspecified; M06.9 Rheumatoid arthritis, unspecified; E78.5 Hyperlipidemia, unspecified; K21.9 Gastro-esophageal reflux disease without esophagitis